=== PATIENT | male | born 1995 | race Caucasian/White ===

== ENCOUNTER 2022-02-05 16:43 | Emergency (ER) | payer OTHER, SELFPAY ==
[2022-02-05 17:58] VITALS: BP 129/78; PULSE 75; RESP 18; TEMP 36.4; O2SAT 99; BMI 26.4
[2022-02-05 18:36] LABS: MANUAL DIFF FLAG NO
[2022-02-05 18:37] LABS: Basophils Absolute Auto 0.1 X10*3/uL (0.0-0.2); Basophils Percent Auto 1.1 % (0-2); Eosinophils Absolute Auto 0.1 X10*3/uL (0.0-0.4); Hematocrit 41.2 % (42.0-52.0); Hemoglobin 13.9 g/dl (14.0-18.0); Imm Gran Abs Auto 0.02 X10*3/uL (0.00-0.03); Imm Gran Pct Auto 0.3 % (0.0-0.4); Lymphocytes Percent Auto 29.9 % (20-40); Mean Corpuscular HGB Conc 33.7 g/dl (31.0-36.0); Mean Corpuscular Hemoglobin 30.1 pg (27.0-33.0); Mean Corpuscular Volume 89.2 fL (80.0-98.0); Mean Platelet Volume 9.4 fL (9.4-12.4); Monocytes Absolute Auto 0.6 X10*3/uL (0.1-1.2); Monocytes Percent Auto 9.6 % (2-11); Neutrophils Absolute Auto 3.7 x10*3/uL (2.0-8.3); Neutrophils Percent Auto 57.1 % (45-73); Platelet Count 353 X10*3/uL (160-400); Red Blood Count 4.62 X10*6/uL (4.60-5.80); Red Cell Distribution Width 11.9 % (11.0-16.0); White Blood Count 6.5 X10*3/uL (4.8-10.8)
[2022-02-05 18:58] LABS: Alanine Aminotransferase 17 U/L (0-40); Albumin Level 4.9 g/dL (3.5-5.0); Alkaline Phosphatase 55 U/L (39-117); Anion Gap 11 (12-20); Aspartate Amino Transferase 13 U/L (5-37); Bilirubin Total 0.4 mg/dL (0.0-1.0); Blood Urea Nitrogen 11 mg/dL (9-16); Calcium 10.3 mg/dL (8.4-10.2); Carbon Dioxide 29 mmol/L (22-29); Chloride 105 mmol/L (96-108); Creatinine Clr Calc Pharmacy 112.9; Estimated Glomerular Filt Rate > 60; Glucose Random 94 mg/dL (60-115); Potassium 4.5 mmol/L (3.3-5.1); Sodium 140 mmol/L (135-145); Total Protein 7.7 g/dL (6.5-8.0)
--- NOTE | 2022-02-05 22:00 | ED_ITS ---
HPI - Abdominal Pain General Chief Complaint: Abdominal Pain Stated Complaint: right lower quadrant pain Time Seen by Provider: 02/05/22 21:46 Source: patient Mode of arrival: ambulatory History of Present Illness HPI narrative: 26-year-old male without significant past medical history states that in approximately January 2020 he was at the gym and follow-up pop in his right lower groin and since then has had intermittent pain to the area which radiates down into the scrotum and states that when he does have pain and has continued to wo rsen with occasional nausea but no vomiting. Patient denies any scrotal or testicular pain/redness or penile discharge. In addition, he denies any fever or chills. Related Data Allergies Allergy/AdvReac Type Severity Reaction Status Date / Time amoxicillin Allergy Hives Verified 02/05/22 18:05 apple Allergy Swelling Verified 02/05/22 18:05 Review of Systems Review of Systems Pertinent positives and negatives as stated in HPI 10 point review of systems is otherwise negative. PMFSH Past Medical History Source: nursing notes reviewed Social History Social History Advance Directives: No Advance Directives Information Provided: No Physical Exam ED Vital Signs: Vital Signs - 24 hr 02/05/22 17:58 Temperature 97.6 F Pulse Rate 75 Respiratory Rate 18 Blood Pressure 129/78 Pulse Oximetry 99 BMI result Body Mass Index 26.4 VITAL SIGNS: Reviewed. GENERAL: Well developed, well nourished, in no acute distress. HEAD: Normocephalic/atraumatic EYES: PERRLA, EOMI EARS: Ext canals without abnormality OROPHARYNX: no oral lesions noted, posterior pharynx clear LUNGS: Normal breath sounds. No adventitious sounds or accessory muscle use. SpO 2<99> CARDIOVASCULAR: Regular rate and rhythm without noted murmurs ABDOMEN: Soft, non-tender, non-distended with bowel sounds. : [Pad Tufter-Sade] Circumcised penis, scrotum without erythema/induration, no testicular pain, on evaluation of inguinal hernia there is a noted defect proximally 1.5 cm with small amount of likely fat felt against the tip of the finger. MUSCULOSKELETAL: No tenderness, deformities, or effusions noted on gross inspection. EXTREMITIES: No cyanosis, clubbing or edema. SKIN: Inspection of the skin reveals no rashes NEUROLOGIC: Alert and oriented x 4. Strength and sensation to light touch were grossly intact x 4. Course Course Course Narrative: 26-year-old male with history and clinical presentation most consistent with right inguinal hernia without obstructive symptoms at this time and no suspicion for epididymitis or testicular/scrotal pathology. Explained the procedure at this time with referral to [facility] for elective scheduling upper repair and given return precautions based on obstructive symptoms. All investigations reviewed without acute findings. Patient is otherwise discharged home in stable condition. MDM - Abdominal Pain Lab Data Result diagrams: 02/05/22 18:30 02/05/22 18:30 Labs: Lab Results 02/05/22 02/05/22 Range/Units 18:30 18:30 WBC 6.5 (4.8-10.8) X10*3/uL RBC 4.62 (4.60-5.80) X10*6/uL Hgb 13.9 L (14.0-18.0) g/dl Hct 41.2 L (42.0-52.0) % MCV 89.2 (80.0-98.0) fL MCH 30.1 (27.0-33.0) pg MCHC 33.7 (31.0-36.0) g/dl RDW 11.9 (11.0-16.0) % Plt Count 353 (160-400) X10*3/uL MPV 9.4 (9.4-12.4) fL Immature Gran % (Auto) 0.3 (0.0-0.4) % Neut % (Auto) 57.1 (45-73) % Lymph % (Auto) 29.9 (20-40) % [place] % (Auto) 9.6 (2-11) % Eos % (Auto) 2.0 (0-4) % Baso % (Auto) 1.1 (0-2) % Lymph # (Auto) 2.0 (1.2-4.9) X10*3/uL [place] # (Auto) 0.6 (0.1-1.2) X10*3/uL Eos # (Auto) 0.1 (0.0-0.4) X10*3/uL Baso # (Auto) 0.1 (0.0-0.2) X10*3/uL Abs Immat Gran (auto) 0.02 (0.00-0.03) X10*3/uL Absolute Neuts (auto) 3.7 (2.0-8.3) x10*3/uL Absolute Nucleated RBC 0.000 (0.0-0.012) X10*3/uL Nucleated RBC % (auto) 0.0 (0.0-0.2) /100WBC Sodium 140 (135-145) mmol/L Potassium 4.5 (3.3-5.1) mmol/L Chloride 105 (96-108) mmol/L Carbon Dioxide 29 (22-29) mmol/L Anion Gap 11 L (12-20) BUN 11 (9-16) mg/dL Creatinine 1.13 (0.5-1.4) mg/dL Estim Creat Clear Calc 112.9 Estimated GFR > 60 Random Glucose 94 (60-115) mg/dL Calcium 10.3 H (8.4-10.2) mg/dL Total Bilirubin 0.4 (0.0-1.0) mg/dL AST 13 (5-37) U/L ALT 17 (0-40) U/L Alkaline Phosphatase 55 (39-117) U/L Total Protein 7.7 (6.5-8.0) g/dL Albumin 4.9 (3.5-5.0) g/dL Discharge Plan Discharge Clinical Impression: Hernia, inguinal, right, Pain of right thumb Patient Disposition: Home, Self-Care Instructions: Inguinal Hernia (ED), Skier's Thumb (ED) Additional Instructions: 1. Please call the office of Surgical Services in the morning to establish an appointment. You will need to start [id number] MiraLax daily to help soften your stools and decrease straining while having a bowel movement. 2. Please call the office of Orthopedic Services to discuss your right thumb and the weakness involved. 3. A list of potential primary care provider says been given to you. Please establish a primary care physician at your earliest convenience. Return to the ER for any signs of obstruction which may include nausea with or without vomiting, inability to pass gas. Referrals: Tariq Lehman MD [Physician] - 2 days (RI, palpated defect 1.5cm, no obstructive symptoms) Jessie Blanca MD [Physician] - 2 days (Skier's Thumb (right), weakness on extension)
== END 2022-02-05 22:25 | disposition home or self-care (01) ==
PROVIDERS: Emergency Provider Student in an Organized Health Care Education/Training Program
DX: K40.90 Unilateral inguinal hernia, without obstruction or gangrene, not specified as recurrent (principal); M79.644 Pain in right finger(s); R10.31 Right lower quadrant pain; Z79.899 Other long term (current) drug therapy
CPT/HCPCS: 36415; 80053; 85025; 99283

== ENCOUNTER → 2022-03-08 11:34 | Outpatient (BNVA) | payer OTHER, SELFPAY | PROVIDERS: Visit Provider Surgery | DX: Z13.89 Encounter for screening for other disorder (principal) ==

== ENCOUNTER 2022-03-09 21:52 | Emergency (ER) | payer OTHER, SELFPAY ==
--- NOTE | ~2022-03-09 | XR_ITS ---
EXAMINATION: XR ELBOW, RIGHT XR FOREARM, RIGHT CLINICAL INFORMATION: Baseball to right forearm and elbow. Rule out fracture. COMPARISON: None TECHNIQUE: AP, lateral, and oblique views of the right elbow. AP and lateral views of the right forearm FINDINGS: No fracture or joint effusion. Alignment is anatomic. Joint spaces are maintained. There is a lucent, tubular tract through the medial humeral epicondyle, possibly result of prior surgery. No acute fracture or malalignment at the left forearm. Radius and ulna are intact. Mild soft tissue swelling in the forearm. No subcutaneous gas. XR/XR forearm RT 2V IMPRESSION: No acute fracture or malalignment at the right elbow and forearm.
--- NOTE | ~2022-03-09 | XR_ITS ---
EXAMINATION: XR ELBOW, RIGHT XR FOREARM, RIGHT CLINICAL INFORMATION: Baseball to right forearm and elbow. Rule out fracture. COMPARISON: None TECHNIQUE: AP, lateral, and oblique views of the right elbow. AP and lateral views of the right forearm FINDINGS: No fracture or joint effusion. Alignment is anatomic. Joint spaces are maintained. There is a lucent, tubular tract through the medial humeral epicondyle, possibly result of prior surgery. No acute fracture or malalignment at the left forearm. Radius and ulna are intact. Mild soft tissue swelling in the forearm. No subcutaneous gas. XR/XR elbow RT 2V IMPRESSION: No acute fracture or malalignment at the right elbow and forearm.
[2022-03-09 23:25] VITALS: BP 140/76; PULSE 95; RESP 18; TEMP 36.8; O2SAT 100; BMI 25.6
--- NOTE | 2022-03-10 00:09 | ED_ITS ---
HPI - Extremity Problem General Chief complaint: Extremity Problem Stated complaint: arm injury Time Seen by Provider: 03/09/22 23:47 Source: patient Mode of arrival: ambulatory Limitations: no limitations History of Present Illness HPI Narrative: 26-year-old male who presents emergency department for evaluation of right elbow and forearm pain. 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 Baseball that was hit at him. He states he was approximately 60 ft away. Did baseball struck his right elbow and forearm. He states that he developed immediate pain in his elbow and forearm and the pain traveled down his right arm to his hand. He states that he lost sensation in his fingers temporarily and then the sensation returned. The injury occurred at 18:30 hours. Patient did apply ice the area with improvement of his symptoms. However since the injury, he has had a constant, sharp to dull pain in the right elbow and forearm which is worse if he pronates the forearm. Related Data Home Medications Medication Instructions Recorded Confirmed No Known Home Meds 03/08/22 03/08/22 Allergies Allergy/AdvReac Type Severity Reaction Status Date / Time amoxicillin Allergy Hives Verified 03/08/22 11:42 apple Allergy Swelling Verified 03/08/22 11:42 Review of Systems Review of Systems: Yes all other systems are reviewed and are negative [facility] Past Medical History [facility] Narrative: Past medical history: None. Past surgical history: None. Social history: Denies tobacco, alcohol and drug use. Medical History (Updated 03/10/22 @ 00:51 by Jesus Gold MD) Right inguinal hernia Social History Social History Advance Directives: No Physical Exam Vital Signs: Vital Signs: Last Vital Signs Temp 98.2 F 03/09/22 23:25 Pulse 95 03/09/22 23:25 Resp 18 03/09/22 23:25 BP 140/76 H 03/09/22 23:25 Pulse Ox 100 03/09/22 23:25 BMI result Body Mass Index 25.6 Const: Other: Very pleasant and cooperative male patient, in no distress HEENT: Head: Yes normocephalic and Yes atraumatic Extrem: Other: The patient does have an oval-shaped hematoma measuring 5 x 4 cm to the lateral elbow and forearm, this area is tender to palpation, the patient has increased pain with active and passive pronation of the right forearm, increased pain with active and passive flexion of the right elbow. The patient's extremities neurovascularly intact. Course Course Course Narrative: 26-year-old male who presents the emergency department for evaluation of right elbow and forearm pain after being hit by a baseball from a better that was approximately 60 ft away from him. His exam is consistent with a hematoma to the right elbow and forearm, x-rays will be obtained to rule out a fracture. His extremities neurovascularly intact. He was treated in the emergency department with ibuprofen 600 mg orally and ice to the area of the hematoma. 0051: The x-rays of the right elbow and forearm were reviewed by me and I do not see any acute fracture, radiology interpretation revealed no acute bony injury. I did discuss the management of hematomas with the patient. The patient was given printed and verbal instructions discharged home. Discharge Plan Discharge Clinical Impression: Traumatic hematoma of right forearm Qualifiers: Encounter type: initial encounter Qualified Code(s): S50.11XA - Contusion of right forearm, initial encounter Patient Disposition: Home, Self-Care Instructions: Hematoma (ED) Additional Instructions: The x-rays of your right elbow and forearm did not reveal any broken bones/fractures on my review these x-rays and on the radiologist's interpretation of the x-rays. You do have a swollen area over your forearm which is consistent with a hematoma (bleeding in the muscle). This hematoma most likely is the cause of your pain, limited movement and numbness that you experienced in your hand. Purchased a sling from any pharmacy and wear the sling for 3 days to help rest your elbow and forearm. Apply ice for 15 minutes 4 to 6 times a day to the hematoma/area of swelling to help reduce the swelling and the size of the hematoma. Take ibuprofen 200 mg pills, 3 pills every 6 hours as needed for pain. Take Tylenol (acetaminophen) 500 mg pills, 2 pills every 4 to 6 hours as needed for pain. Follow-up with your doctor in 2 days. Please return to the emergency department if your symptoms get worse or if you develop any symptoms that are concerning to you. Prescriptions: No Action No Known Home Meds 0RF
[2022-03-10] MEDS: Ibuprofen 600 MG TABLET PO (00:19)
== END 2022-03-10 00:58 | disposition home or self-care (01) ==
PROVIDERS: Emergency Provider Emergency Medicine Emergency Medical Services
DX: S50.11XA Contusion of right forearm, initial encounter (principal); M79.601 Pain in right arm; Y93.67 Activity, basketball; Y93.9 Activity, unspecified; Y92.310 Basketball court as the place of occurrence of the external cause; Y99.9 Unspecified external cause status
CPT/HCPCS: 73070; 73090; 99283; 99284

== ENCOUNTER 2022-04-07 06:53 | Day surgery (SDC) | payer OTHER, SELFPAY ==
[2022-03-31 11:37] VITALS: BMI 25.6
--- NOTE | 2022-04-06 10:19 | HO.ANESPROP2 ---
Documented by User: Yoana Godwin NP 04/06/22 10:20 HPI - Anesthesia Eval Consult details Narrative: 26yo M for Right Hernia Repair Inguinal with mesh PMFSH Active Problems Active Problems: All Active Problems (Updated 03/11/22 @ 00:02 by Vanesa Askew) Right inguinal hernia (Acute) Past Medical History Medical History Right inguinal hernia Social History Social History (Updated 04/07/22 @ 07:59 by Stacey Goldstein MD) Patient Tobacco Use Status: Current everyday Tobacco user Tobacco use type: Smokeless Tobacco Use of substances other than those prescribed or required for medical reasons: Yes Substance Use Type: Marijuana Substance Use Frequency: Daily Are you DNR?: No Advance Directives: No Advance Directives Information Provided: Yes Advance Directives on File: No Meds Allergies Allergy/AdvReac Type Severity Reaction Status Date / Time amoxicillin Allergy Hives Verified 03/08/22 11:42 apple Allergy Swelling Verified 03/08/22 11:42 Home Medications Medication Instructions Recorded Confirmed Last Taken Type No Known Home Meds 03/08/22 03/31/22 Unknown History Exam Exam Date and Time: April 06, 2022 1019 Height,Weight and Vital Signs: Height 6 ft 1 in Weight 87.997 kg Pertinent Lab Results Pertinent Lab Results: Laboratory Tests 02/05/22 02/05/22 18:30 18:30 WBC 6.5 Hgb 13.9 L Hct 41.2 L Plt Count 353 Sodium 140 Potassium 4.5 Chloride 105 Carbon Dioxide 29 BUN 11 Creatinine 1.13 Assessment and Plan Assessment Anesthesia Assessment: Chart Reviewed Documented by User: Stacey Goldstein MD 04/07/22 08:00 PMFSH Past Medical History Medical History Right inguinal hernia Surgical History History of Problems with Anesthesia: No Social History Social History (Updated 04/07/22 @ 07:59 by Stacey Goldstein MD) Patient Tobacco Use Status: Current everyday Tobacco user Tobacco use type: Smokeless Tobacco Use of substances other than those prescribed or required for medical reasons: Yes Substance Use Type: Marijuana Substance Use Frequency: Daily Are you DNR?: No Advance Directives: No Advance Directives Information Provided: Yes Advance Directives on File: No Meds Allergies Allergy/AdvReac Type Severity Reaction Status Date / Time amoxicillin Allergy Hives Verified 03/08/22 11:42 apple Allergy Swelling Verified 03/08/22 11:42 Home Medications Medication Instructions Recorded Confirmed Last Taken Type No Known Home Meds 03/08/22 03/31/22 Unknown History Exam Airway Mallampati Class: II TM Dist: >3cm Neck ROM: Full Loose/Missing/Broken Teeth: No Heart: RRR Lungs: CTA Assessment and Plan Assessment Anesthesia Assessment: Anesthesia Plan Discussed Final Anesthetic Review History of Problems with Anesthesia: No NPO: Yes ASA Class: II Final Preanesthetic Review: Meds/Allgs Chart Reviewed, Consent Obtained/Reviewed and Anes Risks/Benef Reviewed Patient Risk: Low Procedure Risk: Low Anesthetic Plan Anesthetic Plan: GA Disposition: Standard PACU
[2022-04-07] VITALS (8 sets, daily range): BP systolic 94–114; BP diastolic 48–73; PULSE 61–80; RESP 12–16; TEMP 36.5–36.6; O2SAT 99–100
[2022-04-07] MEDS: Lactated Ringers 1,000 ML 100 ML IVCONT (07:39)
--- NOTE | 2022-04-07 08:34 | MHC.SHP ---
Pre-Procedural Eval Section A Date of Service: 04/07/22 Changes since office visit: No Cold of Flu in the past 2 weeks, No New Medical Problems, No Changes in Medication and No Patient answered all questions The History & Physical has been completed within 30 days and I have reviewed it.: Yes Section B Chief Complaint: Unilateral inguinal hernia, without obstruction Allergies: Allergies Allergy/AdvReac Type Severity Reaction Status Date / Time amoxicillin Allergy Hives Verified 03/08/22 11:42 apple Allergy Swelling Verified 03/08/22 11:42 Plan I have reviewed the history and physical and performed a pertinent physical examination on my patient. No changes have occurred unless specified.
--- NOTE | 2022-04-07 09:45 | W.PM.OPN ---
Operative Note Operative Note Date of Service: 04/07/22 Narrative: Preop diagnosis: right inguinal hernia Postop diagnosis: right inguinal hernia, direct Procedure: Repair of right inguinal hernia with mesh Surgeon: Tariq Lehman MD The patient is a 26-year-old male with note of a reducible mass on the right groin consistent with a right inguinal hernia. He understood the technique of right inguinal hernia repair with mesh. He was aware of the risks, benefits, and alternatives He was brought to the operating room and placed supine under general anesthesia via laryngeal mask airway. The right groin was prepped and draped in the usual sterile fashion. A surgical time-out was done. The patient received cefazolin 2 g IV preoperatively. I infiltrated the planned line of incision with lidocaine 1%. I made a short incision using blade 15 along an imaginary line from the anterior superior iliac spine to the Pubic ramus. This was carried down with electrocautery through the full-thickness of the skin and subcutaneous fat down to the external oblique aponeurosis. I bluntly dissected the external oblique aponeurosis with a gauze to expose the anal ring. I made the incision on the aponeurosis using blade 15. To enter the inguinal canal and this was connected with the external ring. I applied hemostats on the edges of this divided external oblique aponeurosis. I bluntly dissected the underside to create space for the mesh. I bluntly dissected the spermatic cord and its contents with the index finger until I was able to pass a [place] drain around this which was used for traction. I identified the vas deferens. there was no hernia sac on the cord. I examined the floor of the canal. The sac was noted on the floor and this was therefore a direct hernia. I used a small-sized plug to reinforce this direct hernia on the floor of the canal. This plug was secured with Prolene 2 sutures to shelving edge of the inguinal and laterally and the oblique superiorly medially with Prolene 2 sutures I reinforced the of the canal with a keyhole mesh. The tails of the mesh were passed around the cord at the level of internal ring and were secured together Prolene 2 sutures. The mesh was flattened on the floor. I secured the mesh with Prolene to suture to shelving edge of the inguinal and laterally, and the internal oblique superiorly and medially and the pubic ramus inferomedially. I removed the [place] drain. I irrigated. I closed the external oblique aponeurosis running Dexon 2-0 stitch to re-create the external ring. I post the subcutaneous layer with Dexon 3-0 interrupted sutures. Skin incision was closed with Dexon 4-0 subcuticular running stitch. I infiltrated the area with Marcaine 0.5% for postop analgesia. Steri-Strips and dressings were applied. The procedure was completed The patient tolerated procedure well. There were no complication noted. Initial and final counts of sponges and instruments were correct. Estimated blood loss about 5 cc . The patient was extubated without difficulty and transferred to the recovery room with stable vital signs.
[2022-04-07] MEDS: oxyCODONE HCl Immed Release 5 MG TABLET PO (10:11)
[2022-04-07] MEDS: Acetaminophen 325 MG TABLET 650 MG PO (10:12)
[2022-04-07] MEDS: fentaNYL citrate/PF 100 MCG/2 ML VIAL 25 MCG IVPUSH (10:16)
== END 2022-04-07 11:10 | disposition home or self-care (01) ==
PROVIDERS: Visit Provider Surgery
PROC: (CPT 49505; principal; 2022-04-07 08:40)
DX: K40.90 Unilateral inguinal hernia, without obstruction or gangrene, not specified as recurrent (principal); Z72.0 Tobacco use; F12.90 Cannabis use, unspecified, uncomplicated; Z88.1 Allergy status to other antibiotic agents
CPT/HCPCS: 49505; C1781; J0690; J1100; J1885; J2250; J2405; J3010